=== PATIENT | male | born 1980 | race Caucasian/White ===

== ENCOUNTER 2017-04-30 01:08 | Observation (INO) | payer OTHER ==
[2017-04-30] VITALS (8 sets, daily range): BP systolic 129–150; BP diastolic 71–90; PULSE 64–81; TEMP 36.3–36.9; O2SAT 92–98; Ht 180.3 cm; Wt 95.0 kg
[~2017-04-30] VITALS: Ht 180.3 cm; Wt 95.0 kg
--- NOTE | 2017-04-30 01:19 | EMERGENCY ROOM VISIT NOTE ---
History Report prepared by Domenic: Amada Stevens Under the Supervision of: Dr. Houston Arriola M.D. First contact with patient: 01:17 Chief Complaint: ABDOMINAL PAIN Stated Complaint: SHARP PAIN RIGHT LWR ABDOMEN History of Present Illness The patient is a 37 year old male who presents to the Emergency Room with complaints of persistent right lower quadrant abdominal pain that started a couple of hours ago. He notes it was sudden onset. The patient rates his pain an 8/10 in severity. He describes his pain as "sharp". He notes he has been nauseous, dizzy, and "clammy". He denies vomiting, chest pain, shortness of breath, or headache. He reports he has been eating okay. He denies any history of kidney stone or blood in urine. Source of History: patient Onset: a couple of hours ago Position: abdomen (RLQ) Symptom Intensity: 8/10 Quality: sharp Timing: other (persistent) Associated Symptoms: + nausea, No headache, No chest pain, No SOB, No vomiting, No urinary symptoms Review of Systems See HPI for pertinent positives & negatives. A total of 10 systems reviewed and were otherwise negative. Past Medical & Surgical stomach problems, acid reflux Family History Diabetes mellitus FHx: cancer Kidney disease Kidney stones Social History Smoking Status: Never Smoker Housing Status: lives with significant other Allergies Coded Allergies: Penicillins (Verified Allergy, Unknown, Unknown -- childhood, 04/30/17) Physical Exam Vital Signs Date Time Temp Pulse Resp B/P (MAP) Pulse Ox O2 Delivery O2 Flow Rate FiO2 04/30/17 03:05 95 20 140/77 96 Room Air 04/30/17 01:14 36.8 101 20 137/84 97 Room Air Physical Exam GENERAL: Patient is uncomfortable appearing and in moderate distress. HEENT: No acute trauma, normocephalic atraumatic, mucous membranes moist, no nasal congestion, no scleral icterus. NECK: No stridor, no adenopathy, no meningismus, trachea is midline. LUNGS: No dyspnea. Clear to auscultation and equal bilaterally. No wheeze, no rhonchi. HEART: Regular rate and rhythm. No murmurs, rubs, gallops appreciated. ABDOMEN: Soft, moderate RLQ tenderness to palpation, bowel sounds positive, no masses appreciated, no peritonitis. BACK: No midline tenderness, no CVA tenderness EXTREMITIES: Normal motion all extremities, no cyanosis, no edema. NEUROLOGIC: Alert and oriented, no acute motor or sensory deficits, no focal weakness, cranial nerves grossly intact. SKIN: No rash, no jaundice, no diaphoresis. Medical Decision & Procedures ER Provider Diagnostic Interpretation: Read Per [employer]. Images reviewed by me as well: CT ABDOMEN & PELVIS With Contrast: Hepatic steatosis. The appendix is thickened with mild surrounding stranding consistent with appendicitis. No evidence of perforation. No free air or free fluid. No fluid collection. Radiologist: Maxwell Anderson MD Laboratory Results 04/30/17 01:40 Red Blood Count 5.46, Mean Corpuscular Volume 83.9, Mean Corpuscular Hemoglobin 29.9, Mean Corpuscular Hemoglobin Concent 35.6, Mean Platelet Volume 9.3, Neutrophils (%) (Auto) 78.3, Lymphocytes (%) (Auto) 14.7, Monocytes (%) (Auto) 5.5, Eosinophils (%) (Auto) 1.0, Basophils (%) (Auto) 0.2, Neutrophils # (Auto) 9.91, Lymphocytes # (Auto) 1.86, Monocytes # (Auto) 0.69, Eosinophils # (Auto) 0.13, Basophils # (Auto) 0.02 04/30/17 01:40 Test 04/30/17 01:40 04/30/17 01:57 White Blood Count 12.65 K/uL (4.8-10.8) Red Blood Count 5.46 M/uL (4.7-6.1) Hemoglobin 16.3 g/dL (14.0-18.0) Hematocrit 45.8 % (42-52) Mean Corpuscular Volume 83.9 fL (80-100) Mean Corpuscular Hemoglobin 29.9 pg (25-34) Mean Corpuscular Hemoglobin Concent 35.6 g/dl (32-36) Platelet Count 259 K/uL (130-400) Mean Platelet Volume 9.3 fL (7.4-10.4) Neutrophils (%) (Auto) 78.3 % Lymphocytes (%) (Auto) 14.7 % Monocytes (%) (Auto) 5.5 % Eosinophils (%) (Auto) 1.0 % Basophils (%) (Auto) 0.2 % Neutrophils # (Auto) 9.91 K/uL (1.4-6.5) Lymphocytes # (Auto) 1.86 K/uL (1.2-3.4) Monocytes # (Auto) 0.69 K/uL (0.11-0.59) Eosinophils # (Auto) 0.13 K/uL (0-0.5) Basophils # (Auto) 0.02 K/uL (0-0.2) RDW Standard Deviation 41.9 fL (36.4-46.3) RDW Coefficient of Variation 13.7 % (11.5-14.5) Immature Granulocyte % (Auto) 0.3 % Immature Granulocyte # (Auto) 0.04 K/uL (0.00-0.02) Urine Color YELLOW Urine Appearance CLOUDY (CLEAR) Urine pH 7.0 (4.5-7.5) Urine Specific [place] 1.023 (1.000-1.030) Urine Protein NEG (NEG) Urine Glucose (UA) NEG (NEG) Urine Ketones NEG (NEG) Urine Occult Blood TRACE (NEG) Urine Nitrite NEG (NEG) Urine Bilirubin NEG (NEG) Urine Urobilinogen NEG (NEG) Urine Leukocyte Esterase NEG (NEG) Urine WBC (Auto) 1-5 /hpf (0-5) Urine RBC (Auto) 5-10 /hpf (0-4) Urine Hyaline Casts (Auto) 1-5 /lpf (0-5) Urine Epithelial Cells (Auto) 10-20 /lpf (0-5) Urine Bacteria (Auto) NEG (NEG) Est Creatinine Clear Calc Drug Dose 129.0 ml/min Estimated GFR () 121.3 Estimated GFR (Non- 104.6 BUN/Creatinine Ratio 17.3 (10-20) Calcium Level 9.2 mg/dl (8.5-10.1) Total Bilirubin 0.4 mg/dl (0.2-1) Direct Bilirubin < 0.1 mg/dl (0-0.2) Aspartate Amino Transf (AST/SGOT) 20 U/L (15-37) Alanine Aminotransferase (ALT/SGPT) 58 U/L (12-78) Alkaline Phosphatase 68 U/L (45-117) Total Protein 7.8 gm/dl (6.4-8.2) Albumin 4.5 gm/dl (3.4-5.0) Lipase 152 U/L (73-393) Bedside Hemoglobin 16.3 g/dl (14.0-18.0) Bedside Hematocrit 48 % (42-52) Bedside Sodium 142 mEq/L (135-144) Bedside Potassium 3.5 mEq/L (3.3-5.0) Bedside Chloride 103 mEq/L (101-112) Bedside Total CO2 24 mEq/l (24-31) Anion Gap 20.0 mmol/L (16-25) Bedside Blood Urea Nitrogen 18 mg/dl (7-18) Bedside Creatinine 0.8 mg/dl (0.6-1.3) Bedside Glucose (other) 127 mg/dl (70-99) Bedside Ionized Calcium (Ross) 1.19 mmol/l (1.12-1.32) Laboratory results as reviewed by me. Medications Administered Medications (Trade) Dose Ordered Sig/Raciel Route Start Time Stop Time Status Last Admin Dose Admin Sodium Chloride 1,000 ml @ 999 mls/hr Q1H1M STAT IV 04/30/17 01:26 04/30/17 02:26 DC 04/30/17 01:53 999 MLS/HR Morphine Sulfate (MoRPHine SULFATE INJ) 8 mg NOW STAT IV 04/30/17 01:26 04/30/17 01:28 DC 04/30/17 01:53 8 MG Ondansetron HCl (Zofran Inj) 4 mg NOW STAT IV 04/30/17 01:26 04/30/17 01:28 DC 04/30/17 01:53 4 MG Cefoxitin Sodium (Mefoxin 2000mg/ 60 ml D5W) 2,000 mg NOW STAT IV 04/30/17 03:02 04/30/17 03:03 DC 04/30/17 03:09 2,000 MG Hydromorphone HCl (Dilaudid Inj) 1 mg NOW STAT IV 04/30/17 03:35 04/30/17 03:36 DC 04/30/17 03:40 1 MG ED Course 0117: The patient was evaluated in room A9B. A complete history and physical exam was performed. 0215: I reevaluated the patient. He is feeling better and is on his way to CT. 0305: I reevaluated the patient and discussed his results. He is feeling better. He does not need any further medications at this time. 0315: General surgery was contacted by me. 0320: I spoke with GAYLA Hawkins from general surgery. He will evaluate the patient for further treatment. Medical Decision Differential: Appendicitis, , MSK, Diverticulitis, UTI, Renal Colic, Bowel Obstruction, Aortic Pathology, amongst other pathologies entertained. 37 yr male arrives with acute RLQ abdominal pain over last few hours. Mild systemic symptoms with this. Quite TTP over RLQ to point where CT indicated. Labs with mild WBC elevation. CT with acute early appendicitis without perforation. Given IV mefoxin and admitted to Gen surg. Throughout stay patient made comfortable with iv narcotics x 2 with good result, along with fluids and zofran. Medication Reconcilliation Current Medication List: was personally reviewed by me Consults Time Called: [phone] Consulting Physician: GAYLA Hawkins general surgery Returned Call: 0320 I spoke with GAYLA Hawkins from general surgery. He will evaluate the patient for further treatment. Impression Primary Impression: Appendicitis Scribe Attestation The scribe's documentation has been prepared under my direction and personally reviewed by me in its entirety. I confirm that the note above accurately reflects all work, treatment, procedures, and medical decision making performed by me. Departure Information Referrals No Doctor, Assigned (PCP) Patient Instructions My [facility] Problem Qualifiers Primary Impression: Appendicitis Appendicitis type: acute appendicitis
[2017-04-30] MEDS ORDERED: ONDANSETRON INJ 2 MG/ML 2 ML VIAL IV STA (01:26)
[2017-04-30] MEDS ORDERED: SODIUM CHLORIDE 0.9% 1000ML 1,000 ML IV STA (01:26)
[2017-04-30] MEDS ORDERED: MoRPHine SULFATE 10 MG/ML CARP/VIAL IV STA (01:26)
[2017-04-30] MEDS ORDERED: OPTIRAY 320 IV PRN (01:30)
[2017-04-30] MEDS ORDERED: PATIENT'S ALLERGY INFO NEEDS ENTERED STA (01:59)
[2017-04-30 02:01] LABS: BASO % 0.2 %; BASO ABS # 0.02 K/uL (0-0.2); EOS ABS # 0.13 K/uL (0-0.5); HEMATOCRIT 45.8 % (42-52); HEMOGLOBIN 16.3 g/dL (14.0-18.0); IG# 0.04 K/uL (0.00-0.02); LYMPH % 14.7 %; LYMPH ABS # 1.86 K/uL (1.2-3.4); MEAN CELL VOLUME 83.9 fL (80-100); MEAN CORPUSCULAR HEMOGLOBIN 29.9 pg (25-34); MEAN CORPUSCULAR HGB CONC 35.6 g/dl (32-36); MEAN PLATELET VOLUME 9.3 fL (7.4-10.4); MONO % 5.5 %; MONO ABS # 0.69 K/uL (0.11-0.59); NEUT % 78.3 %; NEUT ABS # 9.91 K/uL (1.4-6.5); PLATELET COUNT 259 K/uL (130-400); RED CELL DISTRIBUTION WIDTH CV 13.7 % (11.5-14.5); RED CELL DISTRIBUTION WIDTH SD 41.9 fL (36.4-46.3); WHITE BLOOD COUNT 12.65 K/uL (4.8-10.8)
[2017-04-30 02:07] LABS: ISTAT CREATININE 0.8 mg/dl (0.6-1.3); ISTAT IONIZED CALCIUM 1.19 mmol/l (1.12-1.32); ISTAT POTASSIUM 3.5 mEq/L (3.3-5.0)
[2017-04-30 02:21] LABS: ALBUMIN 4.5 gm/dl (3.4-5.0); ALT/SGPT 58 U/L (12-78); AST/SGOT 20 U/L (15-37); BLOOD UREA NITROGEN 16 mg/dl (7-18); CALCIUM 9.2 mg/dl (8.5-10.1); CARBON DIOXIDE 24 mmol/L (21-32); CREATININE 0.94 mg/dl (0.60-1.40); GLUCOSE 123 mg/dl (70-99); LIPASE 152 U/L (73-393); POTASSIUM 3.5 mmol/L (3.5-5.1); SODIUM 139 mmol/L (136-145)
[2017-04-30 02:24] LABS: ALKALINE PHOSPHATASE 68 U/L (45-117); TOTAL PROTEIN 7.8 gm/dl (6.4-8.2)
[2017-04-30] MEDS ORDERED: CEFOXITIN 2000MG/60 ML D5W IV STA (03:02)
[2017-04-30] MEDS ORDERED: HYDROmorphone INJ 1 MG/ML SYR IV STA (03:35)
--- NOTE | 2017-04-30 04:35 | Surgery Consultation ---
Consultation Date of Consultation: Apr 30, 2017. Attending Physician: Reason for Consultation: Appendicitis History of Present Illness Patient is a 37M who presents to the ED tonight for RLQ abdominal pain which started around 1999. Reports his pain sharp and 8/10. States he has felt nauseated since the onset of his pain but denies any vomiting. Denies fever/ recent illness but states he has felt chilly this evening. He is moving his bowels and urinating without trouble. PSHx significant for wisdom teeth. Patient denies any problems with anesthesia in the past. Denies use of blood thinning or anticoagulant medications. Last ate around 1900. Denies FHx of appendicitis. WBC 12.65. CT abd/pelvis shows findings significant for appendicitis. Patient did receive 2g Mefoxin the the ED at 0302. Past Medical/Surgical History Medical Problems: (1) Appendicitis Status: Acute Family History Diabetes mellitus FHx: cancer Kidney disease Kidney stones Social History Smoking Status: Never Smoker Housing Status: lives with significant other Allergies Coded Allergies: Penicillins (Verified Allergy, Unknown, Unknown -- childhood, 04/30/17) Current Inpatient Medications Current Inpatient Medications Medications (Trade) Dose Ordered Sig/Raciel Route Start Time Stop Time Status Last Admin Dose Admin Ioversol (Optiray 320) 125 ml UD PRN IV 04/30/17 01:30 05/04/17 01:29 Review of Systems Constitutional: + chills, No fever Respiratory: No cough, No shortness of breath Cardiovascular: No chest pain Abdomen: + pain (RLQ), + nausea, No vomiting, No diarrhea, No constipation Genitourinary - Male: No dysuria Physical Exam Date Time Temp Pulse Resp B/P (MAP) Pulse Ox O2 Delivery O2 Flow Rate FiO2 04/30/17 03:05 95 20 140/77 96 Room Air 04/30/17 01:14 36.8 101 20 137/84 97 Room Air General Appearance: WD/WN, no apparent distress Head: normocephalic, atraumatic ENT: hearing grossly normal Respiratory/Chest: lungs clear, normal breath sounds, no respiratory distress, no accessory muscle use Cardiovascular: regular rate, rhythm, no gallop, no murmur Abdomen/GI: soft, no organomegaly, no pulsatile mass, + tenderness (RLQ TTP) Neurologic/Psych: alert, normal mood/affect, oriented x 3 Laboratory Results Last 24 Hours Test 04/30/17 01:40 04/30/17 01:57 White Blood Count 12.65 K/uL Red Blood Count 5.46 M/uL Hemoglobin 16.3 g/dL Hematocrit 45.8 % Mean Corpuscular Volume 83.9 fL Mean Corpuscular Hemoglobin 29.9 pg Mean Corpuscular Hemoglobin Concent 35.6 g/dl Platelet Count 259 K/uL Mean Platelet Volume 9.3 fL Neutrophils (%) (Auto) 78.3 % Lymphocytes (%) (Auto) 14.7 % Monocytes (%) (Auto) 5.5 % Eosinophils (%) (Auto) 1.0 % Basophils (%) (Auto) 0.2 % Neutrophils # (Auto) 9.91 K/uL Lymphocytes # (Auto) 1.86 K/uL Monocytes # (Auto) 0.69 K/uL Eosinophils # (Auto) 0.13 K/uL Basophils # (Auto) 0.02 K/uL RDW Standard Deviation 41.9 fL RDW Coefficient of Variation 13.7 % Immature Granulocyte % (Auto) 0.3 % Immature Granulocyte # (Auto) 0.04 K/uL Urine Color YELLOW Urine Appearance CLOUDY Urine pH 7.0 Urine Specific [place] 1.023 Urine Protein NEG Urine Glucose (UA) NEG Urine Ketones NEG Urine Occult Blood TRACE Urine Nitrite NEG Urine Bilirubin NEG Urine Urobilinogen NEG Urine Leukocyte Esterase NEG Urine WBC (Auto) 1-5 /hpf Urine RBC (Auto) 5-10 /hpf Urine Hyaline Casts (Auto) 1-5 /lpf Urine Epithelial Cells (Auto) 10-20 /lpf Urine Bacteria (Auto) NEG Sodium Level 139 mmol/L Potassium Level 3.5 mmol/L Chloride Level 105 mmol/L Carbon Dioxide Level 24 mmol/L Anion Gap 10.0 mmol/L 20.0 mmol/L Blood Urea Nitrogen 16 mg/dl Creatinine 0.94 mg/dl Est Creatinine Clear Calc Drug Dose 129.0 ml/min Estimated GFR () 121.3 Estimated GFR (Non- 104.6 BUN/Creatinine Ratio 17.3 Random Glucose 123 mg/dl Calcium Level 9.2 mg/dl Total Bilirubin 0.4 mg/dl Direct Bilirubin < 0.1 mg/dl Aspartate Amino Transf (AST/SGOT) 20 U/L Alanine Aminotransferase (ALT/SGPT) 58 U/L Alkaline Phosphatase 68 U/L Total Protein 7.8 gm/dl Albumin 4.5 gm/dl Lipase 152 U/L Bedside Hemoglobin 16.3 g/dl Bedside Hematocrit 48 % Bedside Sodium 142 mEq/L Bedside Potassium 3.5 mEq/L Bedside Chloride 103 mEq/L Bedside Total CO2 24 mEq/l Bedside Blood Urea Nitrogen 18 mg/dl Bedside Creatinine 0.8 mg/dl Bedside Glucose (other) 127 mg/dl Bedside Ionized Calcium (Ross) 1.19 mmol/l Assessment & Plan appendicitis Plan for laparoscopic appendectomy, possible open with Dr. Cohen in the OR today. Risks, benefits, alternatives to the procedure were discussed - all questions answered. Admit med/surg (obs), NPO, IV Mefoxin 2g q6h, IV Fluids, pain mediation PRN, Zofran PRN, SCDs. OR Notified. Will discuss findings with Dr. Cohen, Please contact with questions or concerns.
[2017-04-30] MEDS ORDERED: SODIUM CHLORIDE 0.9% 1000ML 1,000 ML IV SCH ×2 (04:45→19:45)
[2017-04-30] MEDS ORDERED: HYDROmorphone INJ 1 MG/ML SYR IV PRN ×2 (04:45→08:30)
[2017-04-30] MEDS ORDERED: HYDROmorphone INJ 0.5 MG/0.5 ML SYR IV PRN (04:45)
[2017-04-30] MEDS ORDERED: ONDANSETRON INJ 6 MG in DEXTROSE 5% 50ML 50 ML IV PRN (04:45)
[2017-04-30] MEDS ORDERED: ONDANSETRON INJ 2 MG/ML 2 ML VIAL ONE (05:05)
[2017-04-30] MEDS: ACETAMINOPHEN IV 1,000 MG in EMPTY BAG 0 ML IV SCH ×3 (06:14→21:34)
[2017-04-30] MEDS ORDERED: IV FLUIDS COMPLETED PRN (06:30)
[2017-04-30] MEDS ORDERED: ONDANSETRON INJ 2 MG/ML 2 ML VIAL IV PRN ×2 (08:30→11:45)
[2017-04-30] MEDS ORDERED: EpHEDrine SULFATE INJ 50 MG/ML AMP IV PRN (08:30)
[2017-04-30] MEDS ORDERED: FENTANYL CITRATE INJ 50 MCG/1 ML 2 ML VIAL IV PRN (08:30)
[2017-04-30] MEDS ORDERED: ATROPINE SULFATE 0.1 MG/ML 5ML SYR IV PRN (08:30)
[2017-04-30] MEDS ORDERED: LABETALOL HCL IV 5 MG/ML 20ML IV PRN (08:30)
[2017-04-30] MEDS ORDERED: MEPERIDINE HCL 25 MG/ML CARP IV PRN (08:30)
--- NOTE | 2017-04-30 08:45 | DIAGNOSTIC IMAGING REPORT ---
CT SCAN OF THE ABDOMEN AND PELVIS WITH IV CONTRAST CLINICAL HISTORY: Right lower quadrant abdominal pain. COMPARISON STUDY: No priors. TECHNIQUE: Following the IV administration of 94 cc of Optiray 320, CT scan of the abdomen and pelvis is performed from the lung bases to the proximal femora. Images are reviewed in the axial, sagittal, and coronal planes. IV contrast was administered without complication. A dose lowering technique was utilized adhering to the principles of ALARA. CT DOSE: 610.68 mGy.cm FINDINGS: Lung bases: The heart is normal in size and without pericardial effusion. The lung bases are clear noting dependent atelectasis. There is a small hiatal hernia. Liver: The contrast-enhanced liver is enlarged, measuring 19.3 cm in length. The liver demonstrates diffusely diminished attenuation consistent with hepatic steatosis. Fatty sparing is seen adjacent to gallbladder fossa. There is no intrahepatic biliary ductal dilatation. The hepatic veins and portal veins are patent. Gallbladder: Unremarkable. Spleen: Normal in size and attenuation. Pancreas: Unremarkable. Adrenal glands: Unremarkable. Kidneys: The contrast enhanced kidneys are normal in size and without hydronephrosis. The kidneys enhance symmetrically. Abdominal vasculature: The abdominal aorta is normal in course and caliber. Bowel: There are scattered colonic diverticula without CT evidence of acute diverticulitis. No bowel obstruction is seen. The appendix is distended and fluid-filled, measuring up to 9 mm in diameter. The appendiceal wall is thickened and hyperemic and there is periappendiceal inflammatory stranding. The appendix is best seen on axial image #361. Findings consistent with acute appendicitis. There is no evidence of abscess. Peritoneum: There is no intraperitoneal free air or abdominal ascites. There is a fat-containing umbilical hernia. Lymphadenopathy: None. Pelvic viscera: The bladder is normal as visualized. The uterus is surgically absent. No adnexal lesion is seen. Skeletal structures: No lytic or blastic lesions are seen. IMPRESSION: 1. Findings are consistent with appendicitis. There is no evidence of abscess or perforation. 2. Hepatomegaly and hepatic steatosis. Electronically signed by: Valerio Donald M.D. 04/30/2017 8:44 AM Dictated Date/Time: 04/30/2017 8:39 AM
[2017-04-30] MEDS ORDERED: CEFOXITIN IV 2,000 MG in DEXTROSE 5% 50ML 50 ML IV SCH (09:00)
[2017-04-30] MEDS ORDERED: MIDAZOLAM HCL 1 MG/ML 2ML VIAL ONE (10:15)
[2017-04-30] MEDS ORDERED: FENTANYL CITRATE INJ 50 MCG/1 ML 2 ML VIAL ONE ×3 (10:15→11:52)
[2017-04-30] MEDS ORDERED: MoRPHine SULFATE PF 1 MG/ML 10 ML AMP/VIAL ONE (10:16)
[2017-04-30] MEDS ORDERED: BUPIVACAINE 0.5 % 5 MG/1 ML MPF 30ML VIAL ONE (10:30)
[2017-04-30] MEDS ORDERED: PROPOFOL IV EMULSION 10 MG/ML 20 ML VIAL IV ONE (10:49)
[2017-04-30] MEDS ORDERED: GLYCOPYRROLATE INJ 0.2 MG/ML VIAL ONE (10:49)
[2017-04-30] MEDS ORDERED: ROCURONIUM BROMIDE 10 MG/ML 5 ML VIAL IV ONE (10:49)
[2017-04-30] MEDS ORDERED: LIDOCAINE HCL 2% 2 ML VIAL (20MG/ML) ONE (10:49)
[2017-04-30] MEDS ORDERED: NEOSTIGMINE METHYLSULFATE 5 MG/5 ML SYR ONE (10:49)
--- NOTE | 2017-04-30 11:24 | [facility] Post Operative Brief Note ---
Immediate Operative Summary Operative Date Apr 30, 2017. Pre-Operative Diagnosis Acute Appendicitis Post-Operative Diagnosis Acute Appendicitis Procedure(s) Performed Laparoscopic Appendectomy Surgeon Dr. Cohen Carbide Operator Surgeon(s) Melinda Billingsley PA-C Estimated Blood Loss 4 ml Findings Consistent with Post-Op Diagnosis Nonperforated, separative acute appendicitis Specimens a. appendix Drains None Anesthesia Type General Complication(s) none Disposition Accompanied Pt To Recover: no Disposition: Recovery Room / PACU
--- NOTE | 2017-04-30 11:26 | [facility] Operative Report ---
Operative Report Operative Date Apr 30, 2017. Pre-Operative Diagnosis Acute Appendicitis Post-Operative Diagnosis Acute, suppurative, nonperforated appendicitis Procedure(s) Performed Laparoscopic appendectomy Surgeon Dr. Cohen Lace Roller Surgeon(s) Melinda Billingsley PA-C Estimated Blood Loss 4 ml Findings Acute, suppurative, nonperforated appendicitis Specimens a. appendix Drains None Anesthesia General Complication(s) None Disposition Recovery Room / PACU Indications 37-year-old male presented to the emergency department with signs and symptoms of acute appendicitis, CT confirmed the diagnosis. Plan for laparoscopic appendectomy. The risks of the procedure were discussed, all questions were answered, and the patient agreed to proceed with surgery as planned. Description of Procedure The patient was properly identified, consented, and taken to the operating room where he was placed in the supine position. General endotracheal anesthesia was induced. SCDs and a safety belt were placed. Preoperative antibiotics were administered. A Louise catheter was not placed. The patient's abdomen was prepped and draped in the standard sterile fashion. Surgical timeout was performed and all parties were in agreement that this was the correct patient and procedure to be performed and we continued as planned. A curvilinear infraumbilical incision was made with electrocautery and deepened down to the fascia with blunt dissection. The base of the umbilicus was grasped with a Jake and elevated towards the ceiling. An incision was made in the midline fascia with a knife and entry into the peritoneum was confirmed. Stay suture of 0 Vicryl was placed and a Darnell trocar was inserted. The abdomen was insufflated with carbon dioxide which the patient tolerated without incident. The laparoscope was inserted and no damage from initial trocar placement was noted, no gross abnormalities were noted within the 4 quadrants the abdomen. 5 mm ports were then placed in the left lower quadrant with care not to damage the epigastric vessels, and in the suprapubic midline with care not to damage the bladder. The patient was placed in Trendelenburg position and rotated towards the left. The small bowel was swept away from the right lower quadrant. The cecum was grasped with an atraumatic grasper exposing the appendix. The appendix was mildly inflamed and there was no evidence of perforation. There was minimal fluid in the pelvis. A window was created between the base of the appendix and the mesoappendix. A de jesus loaded endoscopic stapler was then used to divide the appendix at its base. A de jesus load was then used to divide the mesoappendix. Hemostasis was good. The appendix was placed in an Endo Catch bag and removed through the umbilical port site. The right lower quadrant and pelvis was irrigated and hemostasis was found to be good. 5 mm trochars were removed under direct visualization and the abdomen was allowed to collapse. The umbilical port site fascia was closed with 0 Vicryl suture. The wound was irrigated, and the skin of all ports was closed with 4-0 Monocryl subcuticular sutures. Dermabond was placed over the wounds. The patient was extubated in the operating room and taken to the PACU where he recovered without apparent incident. All sponge, instrument and needle counts were correct at the conclusion of the procedure. The patient tolerated the procedure well. The physician's team assistant was present and scrubbed for the entire case. She was essential in positioning the patient, prepping and draping, entering the abdomen, retraction and exposure, driving the laparoscope, closure of the incisions, and placement of the dressings. I attest to the content of the Intraoperative Record and any orders documented therein. Any exceptions are noted below.
--- NOTE | 2017-04-30 11:35 | Discharge Instructions ---
Discharge Instructions Date of Service Apr 30, 2017. Admission Reason for Admission: Appendicitis Discharge Discharge Diagnosis / Problem: Appendicitis Discharge Goals Goal(s): Decrease discomfort, Improve function Activity Recommendations Activity Limitations: as noted below Lifting Limitations: no more than 10 pounds Exercise/Sports Limitations: until after follow-up appointment May Resume Sexual Activity: after follow-up appointment Shower/Bathe: tomorrow Driving or Machine Use: resume 3 days after discharge . Instructions / Follow-Up Instructions / Follow-Up Please follow-up with Dr. Cohen in the General Surgery Clinic located at [address] [place] [address] [place], [place] in 1-2 weeks. Please call the office at [phone] to make this appointment. Please call the office with any questions or concerns. Current Hospital Diet Patient's current hospital diet: Clear Liquid Diet Discharge Diet Recommended Diet: Regular Diet Procedures Procedures Performed: Laparoscopic Appendectomy Pending Studies Studies pending at discharge: yes List of pending studies: Pathology report. Medical Emergencies . Who to Call and When: Medical Emergencies: If at any time you feel your situation is an emergency, please call 911 immediately. . Non-Emergent Contact Non-Emergency issues call your: Primary Care Provider, Surgeon Call Non-Emergent contact if: temperature is above 101.5, your pain is not controlled, wound has increased drainage, wound has increased redness . "Provider Documentation" section prepared by Melinda Winslow. .
[2017-04-30] MEDS ORDERED: OXYC-57 PO (11:36)
[2017-04-30] MEDS ORDERED: OXYCODONE/ACETAMINOPHEN 5-325 TAB PO PRN ×2 (11:45)
--- NOTE | 2017-04-30 13:30 | Anesthesiology Progress Note ---
Anesthesia Post Op Note Date & Time Apr 30, 2017 at 13:30 Vital Signs Pain Intensity: 3 Vital Signs Past 12 Hours Date Time Temp Pulse Resp B/P (MAP) Pulse Ox O2 Delivery O2 Flow Rate FiO2 04/30/17 13:20 64 16 130/80 (97) 98 2.0 04/30/17 12:50 36.9 64 16 138/78 (98) 98 Nasal Cannula 2.0 04/30/17 12:17 36.5 04/30/17 12:11 133/68 04/30/17 12:09 61 16 04/30/17 12:09 61 16 98 04/30/17 12:06 133/72 04/30/17 12:04 53 16 04/30/17 12:04 52 16 99 04/30/17 12:01 133/70 04/30/17 11:59 50 16 96 04/30/17 11:59 51 16 04/30/17 11:58 50 16 99 04/30/17 11:58 51 16 04/30/17 11:56 129/69 04/30/17 11:53 53 13 96 04/30/17 11:53 57 13 04/30/17 11:51 141/71 04/30/17 11:48 51 12 95 04/30/17 11:48 52 12 04/30/17 11:47 50 14 121/67 95 04/30/17 11:47 50 14 04/30/17 11:42 48 16 138/75 98 04/30/17 11:42 48 16 04/30/17 11:38 135/74 04/30/17 11:37 71 04/30/17 11:37 36.5 52 16 135/74 96 Nasal Cannula 2 04/30/17 11:37 71 94 04/30/17 05:30 36.8 80 18 129/80 Room Air 04/30/17 05:07 73 20 145/84 94 04/30/17 04:58 73 20 145/84 94 Room Air 04/30/17 03:05 95 20 140/77 96 Room Air Notes Mental Status: alert / awake / arousable, participated in evaluation Pt Amnestic to Procedure: Yes Nausea / Vomiting: adequately controlled Pain: adequately controlled Airway Patency, RR, SpO2: stable & adequate BP & HR: stable & adequate Hydration State: stable & adequate Anesthetic Complications: no major complications apparent
[2017-04-30] MEDS ORDERED: NURSING VERBAL MED ORDER ONE ×3 (14:45→19:15)
[2017-04-30] MEDS: OXYCODONE HCL IR 5 MG TAB (IMMEDIATE RELEASE) PO PRN ×4 (16:32→23:23)
[2017-04-30] MEDS ORDERED: PERCOCET HOME PACK PO ONE (20:00)
--- NOTE | 2017-05-03 09:33 | Discharge Summary ---
Discharge Summary Date of Service May 03, 2017. Admission Date/Reason Apr 30, 2017 at 04:40 Appendicitis. Discharge Date/Disposition Apr 30, 2017 Home Diagnosis Principal Diagnosis: Acute Appendicitis Medication Reconciliation New Medications: Oxycodone/Acetaminophen 5MG/325MG (Percocet 5MG/325MG) Tab 1-2 TABLETS PO Q4H PRN for Pain for 3 Days, #30 TAB Admission Physical Exam As per Admitting History & Physical. Hospital Course Patient is a healthy 37-year-old male who presented to [facility] with pain in right lower quadrant x several hours. Denies FHx of appendicitis. WBC 12.65. CT abd/pelvis shows findings significant for appendicitis. Patient was prepped and taken to OR for Laparoscopic Appendectomy with Dr. Cohen. Pre-Op Dx- Acute Appendicitis Post-Op Dx- Acute, suppurative, nonperforated appendicitis Post-operatively patient was taken back to his room on [facility] floor for pain control. Patient was able to tolerate a regular diet, was able to ambulate in hallway. He was deemed eligible for discharge. Return precautions discussed with patient. Both verbal and written instructions were provided to patient. Patient to follow-up in [facility] in 1-2 weeks. Discharge Instructions Please refer to the electronic Patient Visit Report (Discharge Instructions) for additional information.
== END 2017-04-30 23:24 | disposition home or self-care (01) ==
LOC: C.EDB 01:09 → C.MSW 04:40 → ENRESERV 04:56
PROVIDERS: ADMIT Surgery; ATTEND Surgery
DX: K35.80 Unspecified acute appendicitis (principal); Z83.3 Family history of diabetes mellitus; Z84.1 Family history of disorders of kidney and ureter; Z88.0 Allergy status to penicillin